=== PATIENT | male | born 1975 | race Caucasian/White ===

== ENCOUNTER 2016-11-07 11:59 | Day surgery (SDC) | payer OTHER ==
[~2016-11-07] VITALS: Ht 185.4 cm; Wt 78.7 kg
[~2016-11-07 11:59] MED LIST: ADV250INH IH; AMOX500T2 PO; CeFAZolin 2 Gm/50 mL D5W IV Premix IV SCH; CeFAZolin Inj 2 GM in IV Premix 1 EACH IV SCH; FLUT16SP NS; LITH300T PO; LITH300T2 PO; Lactated Ringer's 1,000 ML IV SCH
[2016-11-07] MEDS ORDERED: Ondansetron 2 mg/mL 2 mL Inj ONE (12:00)
[2016-11-07] MEDS ORDERED: Dexamethasone 4 mg/mL Inj ONE (12:00)
[2016-11-07] MEDS ORDERED: Propofol 10,000 mCg/mL 20 mL Inj ONE (12:00)
[2016-11-07] MEDS ORDERED: fentaNYL-PF 50 mCg/mL 2 mL Inj ONE (12:00)
[2016-11-07] MEDS ORDERED: CeFAZolin Inj 2 gm / 50mL D5W IV ONE (12:08)
[2016-11-07 12:38] VITALS: BP 138/80; PULSE 66; RESP 16; O2SAT 100
[2016-11-07] MEDS: Lactated Ringer's 1,000 ML IV SCH ×2 (12:44→14:11)
[2016-11-07] MEDS ORDERED: Lactated Ringer's 500 ML IV PRN (12:54)
[2016-11-07] MEDS ORDERED: Lactated Ringer's 1,000 ML IV SCH (12:54)
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
[2016-11-07] MEDS ORDERED: EPHEDrine Sulfate 50 mg/mL Inj IVPUSH PRN (12:55)
[2016-11-07] MEDS ORDERED: Ondansetron 2 mg/mL 2 mL Inj IVPUSH PRN (12:55)
[2016-11-07] MEDS ORDERED: HYDROmorphone 1 mg/mL Inj IVPUSH PRN (12:55)
[2016-11-07] MEDS ORDERED: Phenylephrine 10,000 mCg/mL Inj IVPUSH PRN (12:55)
[2016-11-07] MEDS ORDERED: MetoCLOpramide 5 mg/mL 2 mL Inj IVPUSH PRN (12:55)
[2016-11-07] MEDS ORDERED: fentaNYL-PF 50 mCg/mL 2 mL Inj IVPUSH PRN (12:55)
[2016-11-07] MEDS ORDERED: Dexamethasone 4 mg/mL Inj IVPUSH PRN (12:55)
[2016-11-07] MEDS ORDERED: Lidocaine 1%/Epi 1:100,000 30 mL MDV INFILTRATE ONE (14:10)
[2016-11-07] MEDS ORDERED: HYDROcodone-APAP 5-325 mg Tablet PO PRN (14:35)
[2016-11-07 14:39] VITALS: BP 104/59; PULSE 65; RESP 8; O2SAT 99
[2016-11-07 14:45] VITALS: BP 108/62; PULSE 66; RESP 10; O2SAT 99
[2016-11-07 14:54] VITALS: BP 100/70; PULSE 76; RESP 14; O2SAT 97
--- NOTE | 2016-11-07 14:57 | PCM.ANEP1 ---
Post Anesthesia Phase 1 PACU Phase 1 Assessment Vital Signs Vital Signs Date Time Temp Pulse Resp B/P Pulse Ox O2 Delivery O2 Flow Rate FiO2 11/07/16 14:54 76 14 100/70 97 Room Air 11/07/16 14:45 66 10 108/62 99 Simple Mask 10 11/07/16 14:39 36.1 65 8 104/59 99 Simple Mask 10 11/07/16 12:38 36.9 66 16 138/80 100 Room Air Anesthetic Administered: GA Level of Alertness: Sleepy, easy to arouse RUIZ's with Equal Strength: Yes Pain: No Nausea or Vomiting: No Airway Device: Oralpharangeal Airway Oxygen Delivery: Simple Mask Lungs: Clear to Auscultation Dermatome Level: Full Sensation Jimmy,Harshad Alarcon MD Nov 07, 2016 14:57
--- NOTE | 2016-11-07 14:57 | PCM.ANEP2 ---
Post Anesthesia Evaluation ASA/CMS Post Anesthesia VS in Patient's Normal Range?: Yes Resp Stable; Airway Patent?: Yes CV Function & Hydration Stable: Yes Mental Status Recovered?: Yes Pain control Satisfactory?: Yes N/V Control Satisfactory?: Yes Early,Harshad Alarcon MD Nov 07, 2016 14:57
[2016-11-07 15:02] VITALS: BP 125/81; PULSE 77; RESP 16; O2SAT 100
[2016-11-07 16:00] VITALS: BP 127/80; PULSE 76; RESP 16; O2SAT 99
--- NOTE | 2016-11-07 16:28 | OP ---
[address] [address] OPERATIVE REPORT PATIENT: ARCADIO JACOBS : 1975 MR#: [id number] ADMIT: 11/07/2016 JOB ID: [id number] DATE OF SURGERY: 11/07/2016 PREOPERATIVE DIAGNOSIS(ES): Right elbow septic olecranon bursitis. POSTOPERATIVE DIAGNOSIS(ES): Right elbow septic olecranon bursitis. PROCEDURE: Excision of right elbow septic olecranon bursa. SURGEON: Destin Otoole D.O. ANESTHESIA: General. HISTORY: The patient is a pleasant 40-year-old male that was at work when he was playing basketball and he fell onto his right elbow. Subsequently sustained elbow swelling and was diagnosed with elbow bursitis. He was treated conservatively at an outlying facility eventually with two aspirations. The first aspiration was followed with utilization of antibiotics. The second aspiration was followed by injection of corticosteroids. He subsequently developed an open wound with active drainage where he was referred to me for further evaluation and treatment. Upon presentation, he had erythema and an active draining wound surrounding the olecranon. There was a palpable bursa. The patient had failed conservative treatment with previous aspirations as well as utilization of antibiotics. I discussed with the patient the risks, benefits and indications to proceed with an excision of right elbow septic olecranon bursa. He understood the risks include, but not limited to, neurovascular injury, tendon injury, infection, failure of fixation, stiffness, persistent pain which may require further intervention. The patient had all questions answered. Consent was signed and placed in the chart. PROCEDURE IN DETAIL: The patient was brought to the operative suite and placed supine on the operating table. Surgical time-out was performed. Everyone in the room was in agreement. After appropriate anesthesia was obtained, a right upper arm tourniquet was applied and the right upper extremity was prepped and draped in a sterile fashion. Right upper extremity was then exsanguinated and tourniquet inflated to 250 mmHg. A longitudinal incision was made directly overlying the olecranon bursa around the open wound to excise the skin and subcutaneous tissue with a small several millimeter margin around the open wound. Dissection was carried down to the bursa. Serosanguinous fluid emanated from the bursa. This fluid was cultured with aerobic and anaerobic cultures. The bursa was freed up from the surrounding soft tissues and excised. The tissue was then sent off to Pathology. Copious irrigation was then performed followed by closure of subcutaneous tissues with 4-0 Monocryl and 3-0 nylon for the skin. The patient was then placed in a bulky compressive dressing. ESTIMATED BLOOD LOSS: Less than 5 cc. COMPLICATIONS: None. DISPOSITION: The patient tolerated the procedure well. Anesthesia was reversed. The patient was transferred to the PACU for recovery. SPECIMENS: Aerobic and anaerobic cultures from the right olecranon bursa as well as the olecranon bursa sent to Pathology. POSTOPERATIVE PLAN: The patient will followup in the office in 10-14 days for a wound recheck. He is to limit any excessive flexion of the elbow and to limit its overall use. I advised him to keep the elbow iced and elevated over the next several days. Again I will followup in 10-14 days for suture removal.
--- NOTE | 2016-11-11 08:27 | PATH ---
SURGICAL PATHOLOGY Attending Physician:Destin Otoole MD CASE STATUS: Signed Out PATIENT NAME: ISIS JACOBS PID: [id number] : 1975 DATE COLLECTED:11/07/2016 00:00 SPECIMEN: Bursa CLINICAL HISTORY: RIGHT ELBOW BURSITIS 1). RIGHT ELBOW BURSA FINAL DIAGNOSIS: Tissue from Right Elbow Bursa: Severe acute and chronic inflammation. ICD10 M71.522 GROSS DESCRIPTION: The specimen is received in formalin, labeled with the patient's name and "right elbow bursa", and consists of an 8.1 x 2.9 x 0.8 cm, terrazas-white to terrazas-brown rubbery soft tissue. The specimen is serially sectioned and representatively submitted in cassettes A and B. (SHANTI:[id number]) ICD-9 CODES: CPT CODES: 1: 87991 Electronically Signed Out Matt Escalera MD [facility] Pathology [facility] [address], [place] [address] Technical component performed at [facility], [address] [place] [address] Ave[address], [place], [address]
== END 2016-11-07 23:59 | disposition home or self-care (01) ==
LOC: SAS 11:59
PROVIDERS: ATTEND Orthopaedic Surgery
DX: M70.21 Olecranon bursitis, right elbow (principal); J45.909 Unspecified asthma, uncomplicated
CPT/HCPCS: 24105; 87070; 87075; 87077; 87186; 87205; J0690; J1100; J2405; J3010; J7120